=== PATIENT | male | born 1985 | race American Indian/Alaskan Native ===

== ENCOUNTER 2022-01-12 15:30 | Emergency (ER) | payer SELFPAY ==
--- NOTE | 2022-01-12 16:09 | Emergency Department Report ---
Suture/Staple Removal - HPI Stated Complaint: LT HAND STICHES REMOVED Time Seen by Provider: 01/12/22 15:55 When Sutures or Maryam Placed: 5-7 Days Ago Wound Location: [facility] hand ED Review of Systems ROS: Stated complaint: LT HAND STICHES REMOVED Other details as noted in HPI Comment: All other systems reviewed and negative ED Past Medical Hx - Past Medical History Previous Medical History?: No - Surgical History Past Surgical History?: No - Family History Family history: no significant - Social History Smoking Status: Never Smoker Suture Removal Exam - Exam General: Vital signs noted. No distress. Alert and acting appropriately. Wound: No Pathologic Erythema, No Tenderness, No Drainage, No Pus, No Wound Dehiscence Other Systems: All other systems reviewed and are unremarkable. ED Recheck MDM - Core Measures Measure Exclusions: not indicated - Differential Diagnosis Suture/Staple Removal - Medical Decision Making sutures removed without difficulty wound care instructions given dc home with dc plan of care including diet, medications, activity and follow- up. He also verbalizes understanding of wound care instructions Critical care attestation.: If time is entered above; I have spent that time in minutes in the direct care of this critically ill patient, excluding procedure time. ED Disposition Clinical Impression: Visit for suture removal Disposition: HOME / SELF CARE / HOMELESS Is pt being admited?: No Does the pt Need Aspirin: No Condition: Stable Instructions: Suture Removal, Care After Additional Instructions: keep wound clean and dry Referrals: MARIAM ORTEZ MD [Staff Physician] - 3-5 Days Forms: Work/School Release Form(ED) Time of Disposition: 16:11
== END 2022-01-12 16:15 | disposition home or self-care (01) ==
LOC: ED 15:30
DX: S61.412D Laceration without foreign body of left hand, subsequent encounter (principal); X58.XXXD Exposure to other specified factors, subsequent encounter